=== PATIENT | male | born 1960 | race Caucasian/White ===

== ENCOUNTER 2019-12-21 17:05 | Inpatient (IN) | payer OTHER ==
[~2019-12-21] VITALS: Ht 177.8 cm; Wt 102.6 kg
[2019-12-21 17:19] VITALS: BP 171/91
[2019-12-21] MEDS ORDERED: PRINIVIL10 MG PO (17:42)
[2019-12-21] MEDS ORDERED: METFORMIN HCL500 M3 PO (17:42)
[2019-12-21 18:28] LABS: ABSOLUTE NEUTROPHILS 7.9 thou/uL (1.4-8.2); BASOPHILS 0.3 % (0.0-2.0); EOSINOPHILS 0.8 % (0.0-3.0); LYMPHOCYTES 12.4 % (24.0-44.0); MCH 34.2 pg (26.0-34.0); MCHC 34.7 g/dL (28.0-37.0); MCV 98.4 fL (80.0-100.0); MONOCYTES 7.7 % (1.0-8.0); PLATELET COUNT 131 thou/uL (150-400); POLYS 78.8 % (36.0-66.0); RBC 4.67 mil/uL (4.50-6.00)
[2019-12-21 18:33] LABS: CALCIUM 8.8 mg/dL (8.5-10.1); CREATININE 0.8 mg/dL (0.7-1.3); POTASSIUM 3.9 mmol/L (3.5-5.1)
[2019-12-21 18:39] LABS: ALBUMIN 3.4 g/dL (3.4-5.0); TOTAL BILIRUBIN 0.8 mg/dL (0.2-1.0); TOTAL PROTEIN 7.9 g/dL (6.4-8.2)
[2019-12-21 20:46] VITALS: BP 171/91
[2019-12-21 23:11] VITALS: BP 135/83
[2019-12-21 23:57] VITALS: BP 165/101
[2019-12-22 04:38] VITALS: BP 150/90
[2019-12-22 05:11] LABS: CALCIUM 8.4 mg/dL (8.5-10.1); CREATININE 0.9 mg/dL (0.7-1.3); POTASSIUM 4.1 mmol/L (3.5-5.1)
[2019-12-22 05:58] LABS: HEMATOCRIT 43.3 % (42.0-52.0); HEMOGLOBIN 14.9 gm/dL (14.0-18.0); MCH 34.1 pg (26.0-34.0); MCHC 34.4 g/dL (28.0-37.0); RBC 4.37 mil/uL (4.50-6.00); RDW 12.8 % (10.5-14.5); WBC 11.4 thou/uL (4.0-11.0)
--- NOTE | 2019-12-22 06:37 | NUR ---
PT ARRIVED VIA CART FROM ER. PT IS BAHAMIAN SPEAKING AND CAN UNDERSTAND THAI WELL. PT IS IN ISOLATION PRECAUTIONS DUE TO POSITIVE ANTIGEN TEST. FOLLOWING POC WITH IVPB. ADMISSION COMPLETED, CARE PLAN IN PLACE, INTERVENTIONS STARTED. PICTURE OF PT RIGHT FOOT TAKEN. PT REQUEST ORAL PAIN MEDICATION X1 AND HAD GOOD RESULTS. PT HAD A TEMP OF 102.6 AT 0430 VITALS. TYLENOL GIVEN AND TEMP RECHECKED AT 0600. 99.1 ORALLY. CONSULTS TO BE CALLED IN.
[2019-12-22 07:52] VITALS: BP 155/82
--- NOTE | 2019-12-22 10:00 | NUR ---
Nutrition: pt admitted with right foot cellulitis/DM foot ulcer. Consult received. Pt new admit. COVID +. Attempted phone call. Pt did not answer. 1999 carb controlled diet. Hx DM2, HTN. BG 258-259. A1C pending. RN reports pt eating > 100% of meals. No weight hx however pt reported weight as 238, weight obtained was 260#. Follow trends. Plan MRI foot to r/o osteomyelitis. Place pt as low nutrition risk for now.
--- NOTE | 2019-12-22 14:14 | NUR ---
INITIAL ASSESSMENT: SW reviewed chart and spoke with nursing and attending physicain. Pt was admitted from home due to cellulites/DM foot ulcer/osteomyelitis. Pt placed in Enhanced Isolation due to COVID-19. Pt with fever and is on IV abx. ID and Ortho consulted. SW placed call to pt's room. No answer. Per chart, pt is alert/orientated and lives at home with family. Pt is employed and has health insurance. GREGORY will continue to contact pt for additional information and to discuss discharge planning.
[2019-12-22 16:18] VITALS: BP 188/107
--- NOTE | 2019-12-22 20:00 | NUR ---
PATIENT RESTED IN ROOM THROUGH THE DAY. DOES NOT SEEM TO BE IN PAIN OR DISTRESS. PLEASANT WITH CARES. CELLULITIS NOT TO RIGHT LOWER EXTREMITY. HE DENIES PAIN. WILL CONT WITH PLAN OF CARE.
[2019-12-22 20:20] VITALS: BP 154/96
--- NOTE | 2019-12-22 23:56 | NUR ---
ASSUMED CARE AT 1900, ASSESSMENT COMPLETED. PT REPORTS PAIN IN RIGHT FOOT, HAD FEVER OF 101.4; GAVE NORCO AND TYLENOL. REMINDED TO CALL FOR PAIN MEDS, THAT NEXT AVAILABLE NORCO WAS AT 0100. PT ASKED TO HHAVE A WORK RELEASE FROM THE DOCTOR THAT HE COULD GIVE TO HIS TOMORROW. SWABBED FOOT WOUND PER DR. HARRELL. HANDOFF REPORT GIVEN AT 2330, PT IN STABLE CONDITION.
--- NOTE | 2019-12-23 01:32 | NUR ---
ATTEMPTED TO COMPLETE ID ORDER TO CALL MICRO LAB AND OBTAIN CYCLE THRESHOLD #4 COVID-19 PCR. FOLLOWED UP WITH LAB AND UNABLE TO OBTAIN DUE TO PATIENT HAVING POSITIVE ANTIGEN TEST THEREFORE NO PCR WAS OBTAINED.
[2019-12-23 05:09] VITALS: BP 141/86
[2019-12-23 07:08] LABS: GLYCOHEMOGLOBIN (HGB A1C) 8.4 % (4.8-5.6)
[2019-12-23 07:46] VITALS: BP 150/83
--- NOTE | 2019-12-23 09:14 | NUR ---
VANCO TROUGH FROM THE EVENING PRIOR IS HIGHER THAN THE NORMAL RANGE, VANCO MANAGED BY ID, RN CALLED ID, REACHED ANSWERING SERVICE, NOTIFIED OF HIGH TROUGH NUMBER AND SCHEDULED VANCO FOR 1100, ANSWERING SERVICE TO NOTIFY REAGARDING THIS PT.
--- NOTE | 2019-12-23 12:23 | HC ---
[facility] [place] [address] CONSULTATION Name: TJ MACIEL Room #: 359-P ADM IN M.R.#: [id number] Admission: 12/21/19 Attend Phys: Clive Martinez MD Discharge: Date of : 62 Report #: [id number] THIS REPORT FOR: cc: [facility] - Clinic physician unknown [facility] - Clinic physician unknown Lilo Perry MD ~ CC: [facility] unknown Clive Martinez DATE OF SERVICE: 12/22/2019 REASON FOR CONSULTATION: Cellulitis, right foot. Possible osteomyelitis. HISTORY OF PRESENT ILLNESS: The patient is a 59-year-old type 2 diabetic, who presented to the Emergency Department with right foot pain and falling approximately 4 days ago without a specific injury. He said the symptoms have become worse, although they have not really changed since he was admitted last night. He reports redness and swelling and pain. He denies any prior history of diabetic foot wounds. Of note, the exam was somewhat limited due to language barrier and step down specialist was not immediately available. REVIEW OF SYSTEMS: INTEGUMENTARY: Denies other skin issues secondary to diabetes. NEUROLOGIC: Denies numbness or tingling. PAST MEDICAL HISTORY: Significant for diabetes mellitus and hypertension. ALLERGIES: No known drug allergies. SOCIAL HISTORY: He denies smoking or drinking alcohol. He ambulates without any assistive devices. MEDICATIONS: Include lisinopril and metformin. SURGICAL HISTORY: Unknown. LABORATORY STUDIES: Done show COVID positive test. On 12/22/2019 white blood cell count 11.4, hemoglobin 14.9, hematocrit is 43.3, platelet count 132. ESR is elevated at 27, blood glucose levels are elevated in 255 range. PHYSICAL EXAMINATION: GENERAL: The patient is awake, alert and oriented. He interacts appropriately. He is a well-developed, well-nourished male in no acute distress. He has a normal affect. VITAL SIGNS: Most recent vital signs show temperature of 38.3, heart rate is 116, respiratory rate 21, blood pressure 188/107, pulse oximetry is 94% on room [address] [address] CONSULTATION Name: TJ MACIEL Room #: 359-P ADM IN M.R.#: [id number] Admission: 12/21/19 Attend Phys: Clive Martinez MD Discharge: Date of : 62 Report #: [id number]. EXTREMITIES: Examination of his right lower extremity, he has moderate amount of erythema and edema to the dorsum of his foot including his second, third and fourth toe. The third toe has some ecchymosis. He has diffuse tenderness in this area. He has 1+ dorsalis pedis pulse. Sensation is intact to light touch throughout. He has a skin breakdown on the dorsal aspect of his third toe. He wiggles his toes. Grossly normal strength and stability. Left lower extremity exam, the skin is clean, dry and intact. He has brisk capillary refill. He wiggles his toes. Grossly normal strength and stability. RADIOGRAPHS: AP, lateral and oblique of the right foot were reviewed and interpreted by myself as well as the report was reviewed, which shows a chronic appearing erosion at the base of the proximal second phalanx. MRI is pending. IMPRESSION AND PLAN: Right foot cellulitis, possible osteomyelitis. MRI is pending. Recommend continuing with IV antibiotics. We will check the MRI tomorrow and reevaluate. Thank you for allowing me to participate in the care of this patient. <ELECTRONICALLY SIGNED> By: Lilo Perry MD 12/23/19 1223 1726 11 Lilo Perry MD /nt
--- NOTE | 2019-12-23 14:43 | NUR ---
SW reviewed chart and spoke with nursing and attending physician. Pt in Enhanced Isolation due to COVID-19. Pt is febrile and on IVabx. Pt to have MRI of his foot today. Ortho and ID following. No weekend discharge planned. GREGORY is following to assist as needed with discharge planning.
[2019-12-23 16:28] VITALS: BP 162/81
[2019-12-23 21:08] VITALS: BP 162/96
[2019-12-24 02:59] VITALS: BP 133/86
--- NOTE | 2019-12-24 05:00 | NUR ---
ASSUMED CARE AT 1900, ASSESSMENT COMPLETED. PT REPORTS INTERMITTENT HEADACHE ALONG WITH MODERATE FOOT PAIN; HAVE GIVEN PAIN MEDS ONCE OVERNIGHT. BP ELEVATED AT HS, EDUCATED THIS COULD BE WHY PT HAS A HEADACHE. DENIES SOB, HAS SOME FINE CRACKLES IN LEFT LOWER BASE. RIGHT FOOT CONTINUES TO BE VERY WARM AND RED WITH 2+ EDEMA, BUT PT REPORTS HE IS ABLE TO MOVE HIS ANKLE AND FOOT WITHOUT MUCH PAIN A FEW DAYS AGO. NO OTHER CONCERNS, WILL CONTINUE TO MONITOR.
[2019-12-24 08:22] VITALS: BP 159/95
--- NOTE | 2019-12-24 12:48 | NUR ---
SPOKE WITH PT ABOUT CURRENT MRI RESULT THAT POPULATED YESTERDAY, PT WAS SEEN BY ORTHOPEDICS , WELL . IT WAS DISCUSSED WITH ORTHOPEDICS THAT PT'S FOOT IS TO BE MONITORED TO SEE IF AMPUTATION WILL BE NEEDED. NO COMPLAINTS FROM THE PT AT THIS TIME. PAIN MEDICATION WAS PROVIDED PER REQUEST AND ABX STILL INFUSING AT THIS TIME
[2019-12-24 15:30] VITALS: BP 135/86
[2019-12-24 21:17] VITALS: BP 180/105
[2019-12-25 04:12] VITALS: BP 141/85
[2019-12-25 06:02] LABS: HEMATOCRIT 39.6 % (42.0-52.0); HEMOGLOBIN 13.6 gm/dL (14.0-18.0); MCH 33.4 pg (26.0-34.0); MCHC 34.2 g/dL (28.0-37.0); MCV 97.6 fL (80.0-100.0); PLATELET COUNT 165 thou/uL (150-400); RBC 4.06 mil/uL (4.50-6.00); RDW 12.6 % (10.5-14.5); WBC 6.6 thou/uL (4.0-11.0)
[2019-12-25 06:15] LABS: CALCIUM 8.6 mg/dL (8.5-10.1); CREATININE 0.7 mg/dL (0.7-1.3); MAGNESIUM 1.7 mg/dL (1.8-2.4); POTASSIUM 3.7 mmol/L (3.5-5.1)
[2019-12-25 07:50] LABS: ABSOLUTE NEUTROPHILS 4.8 thou/uL (1.4-8.2)
[2019-12-25 07:54] VITALS: BP 146/83
[2019-12-25 15:23] VITALS: BP 165/92
--- NOTE | 2019-12-25 15:28 | NUR ---
PT WAS SEEN TODAY BY ORTHOPEDICS, IT WAS STATED LIKELY AMPUTATION OF THE R FOOT 3RD DIGIT, PUS WAS DRAINED. DRESSING CHANGED TWICE BY RN AND MD. NO XEROFORM NEEDED WITH DRESSING CHANGE AT THIS TIME. BORDER LINE DRAWN BY RN OF THE CELLULITIS, TIMED/DATED. PT HAD AN EPISODE OF FEVER 100.2F, MONITORING AND TYLENOL/HYDROCODONE WILL BE PROVIDED. PT HAS HEALTHY APPETITE AND GREAT OUTLOOK. WILL CONTINUE TO MONITOR CLOSELY AND PROVIDE ABX TX SCHEDULED.
--- NOTE | 2019-12-25 15:48 | HC ---
[facility] [place] [address] CONSULTATION Name: TJ MACIEL Room #: 359-P ADM IN M.R.#: [id number] Admission: 12/21/19 Attend Phys: Clive Martinez MD Discharge: Date of : 62 Report #: [id number] THIS REPORT FOR: cc: [facility] - Clinic physician unknown [facility] - Clinic physician unknown Wong Acevedo MD ~ CC: [facility] unknown Clive Martinez DATE OF SERVICE: 12/24/2019 WOUND CARE CONSULTATION REASON FOR CONSULTATION: Cellulitis of right second and third toe with cellulitis of foot in setting of diabetic foot ulcer. HISTORY OF PRESENT ILLNESS: The patient is a 59-year-old gentleman with a history of diabetes mellitus type 2 and hypertension, admitted for extreme cellulitis of his right foot associated with diabetic foot ulcer between the second and third toes. Plain radiograph of the foot has shown no bony involvement. An MRI was negative for osteomyelitis. Lower extremity Doppler study has shown no deep vein thrombosis. Lower extremity arterial duplex ultrasound shows no arterial insufficiency. Wound care is consulted due to diabetic foot ulcer. Foot has become quite red with some redness extending from the foot to the leg. PAST MEDICAL HISTORY: Diabetes mellitus type 2, previous history of osteomyelitis. ALLERGIES: No known drug allergies. MEDICATIONS: Metformin. The patient is currently on Zosyn, lisinopril, Humalog insulin, vancomycin, hydrocodone. PHYSICAL EXAMINATION: GENERAL: Shows a well-appearing middle-aged male who is alert and pleasant. HEENT: Mucous membranes are moist. NECK: Supple. LUNGS: Respirations unlabored. ABDOMEN: Soft. EXTREMITIES: Examination of the lower extremities shows bright red cellulitis with edema of the dorsum of his right foot associated with an open ulceration between the second and third toes at the base of the toes in the interspace with some drainage. Redness extending from the toe to the dorsum of the foot to the ankle. Left foot is normal. [facility] [address] [place] [address] CONSULTATION Name: TJ MACIEL Room #: 359-P ADM IN [facility].#: [id number] Admission: 12/21/19 Attend Phys: Clive Martinez MD Discharge: Date of : 62 Report #: [id number] LABORATORY DATA: White blood count 10.0. MICROBIOLOGY: Culture of the right diabetic foot ulcer shows beta strep group B preliminarily. IMPRESSION: Diabetic foot ulcer of right foot with cellulitis of second and third toes and foot. PLAN: Elevation of the extremity. IV antibiotics, vancomycin and Zosyn antibiotics, tailored to culture results. He will use Xeroform and dry gauze between the toe interspace. Observe for resolution of cellulitis with antibiotics. There does not appear to be bony involvement. Wound care team will follow. <ELECTRONICALLY SIGNED> By: Wong Acevedo MD 12/25/19 1548 1627 [id number] Wong Acevedo MD /nt
[2019-12-25 20:05] VITALS: BP 158/88
[2019-12-26 04:03] VITALS: BP 153/89
[2019-12-26 06:17] LABS: ABSOLUTE NEUTROPHILS 4.6 thou/uL (1.4-8.2); BASOPHILS 0.4 % (0.0-2.0); EOSINOPHILS 1.2 % (0.0-3.0); HEMATOCRIT 39.7 % (42.0-52.0); HEMOGLOBIN 13.7 gm/dL (14.0-18.0); LYMPHOCYTES 16.3 % (24.0-44.0); MCH 33.6 pg (26.0-34.0); MCHC 34.6 g/dL (28.0-37.0); MCV 97.3 fL (80.0-100.0); MONOCYTES 9.8 % (1.0-8.0); PLATELET COUNT 162 thou/uL (150-400); POLYS 72.3 % (36.0-66.0); RBC 4.08 mil/uL (4.50-6.00); RDW 12.2 % (10.5-14.5); WBC 6.4 thou/uL (4.0-11.0)
--- NOTE | 2019-12-26 06:18 | NUR ---
FOLLOWING POC WITH IVPB ANTIBIOTICS. DURING DAY YESTERDAY PT HAD A FEVER, BUT THERE WERE NONE OVERNIGHT. PT REQUESTED PO PAIN MEDICATIONS AND HAD GOOD RESULTS FOR PAIN MANAGEMENT. VSS.
[2019-12-26 07:29] VITALS: BP 156/84
--- NOTE | 2019-12-26 10:54 | NUR ---
PT RECEIVED A SHOWER TODAY INDEPENDANTLY, RN CHANGED ALL LINENS IN THE ROOM, ALSO PROVIDED WOUND CARE POST SHOWER PER ORDER. NO COMPLAINTS FROM THE PT AT THIS TIME. TEMPERATURE ELEVATED AT 100.4F THIS MORNING WITH INCREASED HR. NORCO AND ACETOMINOPHEN PROVIDED. ORTHO TO POSSIBLY SEE THE PT TODAY, WILL UPDATE PROGRESSES
[2019-12-26 20:23] VITALS: BP 169/100
[2019-12-27 05:03] VITALS: BP 130/76
--- NOTE | 2019-12-27 06:40 | NUR ---
PT HAS HAD FEVERS OFF AND ON YESTERDAY. 2100 TEMP 102.6, TYLENOL GIVEN WITH GOOD RESULTS TEMP ON RECHECK WAS 98.6. PT UP AD MELISSA. MONITORING WOUND AND FOLLOWING POC WITH IVPB.
[2019-12-27 07:44] VITALS: BP 151/87
--- NOTE | 2019-12-27 11:05 | NUR ---
SW reviewed chart and spoke with nursing and attending physician. Pt in Enhanced isolation due to COVID-19. Pt is febrile and on IV abx. Pt does not require O2. Ortho following due to right 3rd toe abscess. May need amputation. SW is following to assist as needed with discharge planning.
--- NOTE | 2019-12-27 14:40 | NUR ---
ASSUMED PATIENT CARE THIS AM AT APPROXIMATELY 0700. PATIENT AWAKE ALERT, NO DISTRESS NOTED. PATIENT TOLERATING MEDICATIONS ORDERED. ASSESSMENTS CHARTED. EDUCATED PATIENT ON NEED FOR IV ABO FOR INFECTION TO RIGHT FOOT. DRY GAUZE DRESSING CHANGE COMPLETED TO RIGHT FOOT THIS SHIFT AND PATIENT TOLERATED WELL. O2 SAT STABLE ON ROOM AIR, NO COMPLAINTS OF SOB.
[2019-12-27 15:15] VITALS: BP 158/78
[2019-12-27 19:28] VITALS: BP 152/89
[2019-12-28 04:41] VITALS: BP 130/88
--- NOTE | 2019-12-28 06:00 | NUR ---
PT TOOK A SHOWER THEN COMPLETED WOUND CARE PER POC. IVPB ANTIBIOTICS GIVEN. ORAL PAIN MEDICATION GIVEN X1. PT UP AD MELISSA. NO FEVERS OVERNIGHT.
[2019-12-28 08:10] VITALS: BP 146/99
[2019-12-28 11:33] VITALS: BP 140/89
--- NOTE | 2019-12-28 14:05 | NUR ---
SW reviewed chart and spoke with nursing and attending physician. Pt remains in Enhanced Isolation due to COVID-19. Pt is afebrile and not requiring O2. Pt is on IV abx. Ortho and wound care following for possible debridement. SW placed call to pt's room. No answer. SW is following to assist as needed with discharge planning.
[2019-12-28 16:59] VITALS: BP 152/81
[2019-12-28 19:56] VITALS: BP 158/89
[2019-12-29 05:42] VITALS: BP 144/80
[2019-12-29 08:04] VITALS: BP 165/100
--- NOTE | 2019-12-29 08:22 | NUR ---
ASSUMED CARE OF PATIENT. ALERT XS 4 NO PAIN BLOOD SUGAR CHECKED. AM MEDS AND INSULIN ORDERED TO BE GIVEN. PT PLEASANT AND COOPERATIVE WITH CARE.
--- NOTE | 2019-12-29 09:50 | NUR ---
Nutrition: Seen for weekly follow up. Pt continues as COVID+ in Enhanced Isolation. Able to reach pt by phone today. He reports a really great, stable appetite. Ate 100% of all meals recorded from 12/26, no other meals recorded this stay. He has diabetic foot ulcer/R foot cellulitis. Ortho and wound care following for possible debridement? R middle toe noted to have some necrotic skin per EMR. On a 2000 kcal diabetic diet. Majority of BGs are ~150 mg/dl or less, yesterday BGs ranged 149-206 mg/dl. He is on metformin BID and SSI. Question accuracy of 260# initial admit wt as most recently this week weights are stable at 226-230#. Pt agreeable to RD education over phone re: protein needs to support wounds and healthy foods in general to choose. See RD education note for more details. Keep as low nutrition risk.
--- NOTE | 2019-12-29 10:11 | NUR ---
DR MCDANIELS SPEAKS [place] AND EXPLAINED PICC PLACEMENT TO HIM PATIENT WILL GO HOME WITH IV ABT THERAPY.
--- NOTE | 2019-12-29 13:42 | NUR ---
GREGORY reviewed chart and spoke with nursing. Pt is in Enhanced Isolation due to COVID-19. Pt is afebrile and not requiring O2. Pt remains on IV abx. Pt to have PICC line placed today with anticipation of home IV abx. SW spoke with pt via phone to discuss home IV abx. Pt verbalized understanding. Hospitalist who speaks Turkmen met with pt to discuss PICC line placement and home IV abx. Pt aware of need for home IV abx. SW explained process for home infusion/HH. Pt verbalized understanding. No preference voiced of providers. SW faxed referral to [facility] to check insurance coverage. SW also faxed referral to [facility] . Notified liaisons of new referral. GREGORY is following to assist as needed with discharge planning.
[2019-12-29 17:04] VITALS: BP 149/86
[2019-12-29 19:59] VITALS: BP 164/84
--- NOTE | 2019-12-29 20:07 | NUR ---
RISK, BENEFITS, AND ALTERNATIVE TREATMENT DISCUSSED RELATED TO PICC PROCEDURE. TEACHING GIVEN RELATED TO POSSIBLE COMPLICATIONS SUCH BLEEDING, INFECTION, CLOT, OR VESSEL PERFORATION. INSTRUCTION GIVEN RELATED TO CLABSI PREVENTION. TEACHING GIVEN IN SIMPLE TERMS TO THE PATIENT. PATIENT VOICES UNDERSTANDING. VOICES THAT DR. GALEANO EXPLAINED EVERYTHING IN DETAIL EARLIER THIS AM. CONSENT OBTAINED. SINGLE LUMEN PICC PLACED TO RUE BASILIC VEIN. ONE STICK AND NO COMPLICATIONS. PATIENT TOLERATED WELL. LENGTH =45CM. EXTERNAL =0CM. CHEST XRAY CONFIRMED TIP OF PICC IN DISTAL SVC. PATIENT'S RN AND CHARGE NURSE NOTIFIED OKAY TO USE PICC.
--- NOTE | 2019-12-30 01:04 | NUR ---
ASSUMED CARE OF PT AT 1900HRS. PT IS AOX4 AND LETS NEEDS BE KNOWN. PT IS UP AD MELISSA. ABX TREATMENT CONTINUED. ASSESSMENT CHARTED. PT DENIED SIGNIFICANT PAIN, NAUSEA OR SOA. ENHANCED ISOLATION MAINTAINED. HOME HEALTH TO ASSESS PT BEFORE DC. POSSIBLE DC IN THE AM WITH HH AND IV ABX. PT WAS TAURUS TO GET COMFORTABLE AND SLEEP PART OF THE SHIFT. VSS ANS NO S/S OF ACUTE DISTRESS. WILL CONTINUE TO MONITOR.
[2019-12-30 04:22] VITALS: BP 149/76
[2019-12-30 08:00] VITALS: BP 139/87
[2019-12-30] MEDS ORDERED: INVANZ1 GM IV (10:37)
--- NOTE | 2019-12-30 10:43 | NUR ---
ASSUMED PATIENT CARE THIS AM AT APPROXIMATELY 0700. PATIENT AWAKE ALERT ORIENTED IN NO ACUTE DISTRESS. TOLERATING MEDS/ DIET WELL. O2 SAT STABLE ON ROOM AIR. DRESSING CHANGE COMPLETED TO RIGHT FOOT WOUND, TOLERATED WELL. DENIES ANY PAIN TO FOOT AT THIS TIME. SEEN BY DR. BRITO AND STATES OK TO DC AFTER SEEN BY HH NURSE AND HH SET UP. SPOKE WITH DR. HARRELL, STATES TO GIVE DOSE OF ERTAPENEM PRIOR TO D/C AND MED WILL BE Q24H PATIENT WILL BE INSTRUCTED TO TAKE MEDICATION TOMORROW.
[2019-12-30 10:46] VITALS: BP 139/87
[2019-12-30 12:16] VITALS: BP 139/87
--- NOTE | 2019-12-30 13:42 | NUR ---
CARE TEAM INDICATED THAT PT IS MEDICALLY STABLE TO DISCHARGE HOME THIS DAY. LAINE WITH [facility] DELIVERED SUPPLIES TO UNIT AND DRUG WILL BE DELIVERED TO PT'S HOME THIS EVENING. SHE COMPLETED FACE TIME BEDSIDE TEACH AND SHE INDICATED THAT PT DID WELL. ORDERS S[facility] TO [facility] AND [facility] . PT'S SPOUSE TO PROVIDE TRANSPORT HOME AFTER PT FINISHES HIS LOADING DOSE OF ABX SHORTLY AFTER 1300. NO OTHER CM INTERVENTION INDICATED. CASE CLOSED.
--- NOTE | 2019-12-30 17:15 | NUR ---
PATIENT DISCHARGED HOME TODAY, EDUCATION GIVEN REGARDING HOME IV ABO INFUSION DAILY, HH NURSE CAME TO UNIT TO INSTRUCT PATIENT ON PROPER USE OF PICC LINE AND INFUSION OF IV ANTIBIOTICS, PATIENT WAS ABLE TO RETURN DEMONSTRATE PROCESS AND VERBALIZED UNDERSTANDING OF PROCCESS. PATIENT FOLLOW UP APPOINTMENT MADE WITH DR. STRONG OFFICE FOR 1 WEEK POST-DISCHARGE. PATIENT REPORTS UNDERSTANDING OF NEED FOR FOLLOW UP. DRESSING CHANGE ORDERS REVIEWED WITH PATIENT., INSTRUCTED PATIENT TO KEEP WOUND CLEAN AND DRY. PATIENT LEFT UNIT WITH PICC LINE IN PLACE. DRESSING C/D/I. NO S/S OF INFECTION NOTED TO SITE. EDUCATED PATIENT TO KEEP PICC DRESSING INTACT AND C/D AND HH NURSE WITH CHANGE DRESSINGS WEEKLY. WHEELED OFF UNIT VIA WHEELCHAIR. TAKEN HOME BY
== END 2019-12-30 13:53 | disposition home health service (06) | DRG 871 ==
LOC: ER 17:05 → EROBS 20:33 → 3W 20:33
PROVIDERS: Nurse Practitioner Family; Orthopaedic Surgery Sports Medicine; ADMIT Internal Medicine; ATTEND Internal Medicine
PROC: B548ZZA Ultrasonography of Superior Vena Cava, Guidance (ICD-10-PCS; principal; 2019-12-29)
PROC: 02HV33Z Insertion of Infusion Device into Superior Vena Cava, Percutaneous Approach (ICD-10-PCS; principal; 2019-12-29)
DX: A41.9 Sepsis, unspecified organism (principal); U07.1 COVID-19; L03.115 Cellulitis of right lower limb; E11.52 Type 2 diabetes mellitus with diabetic peripheral angiopathy with gangrene; I96 Gangrene, not elsewhere classified; L02.611 Cutaneous abscess of right foot; L97.519 Non-pressure chronic ulcer of other part of right foot with unspecified severity; B95.5 Unspecified streptococcus as the cause of diseases classified elsewhere; B96.89 Other specified bacterial agents as the cause of diseases classified elsewhere; B95.61 Methicillin susceptible Staphylococcus aureus infection as the cause of diseases classified elsewhere; I10 Essential (primary) hypertension; E11.42 Type 2 diabetes mellitus with diabetic polyneuropathy; E11.621 Type 2 diabetes mellitus with foot ulcer; Z79.84 Long term (current) use of oral hypoglycemic drugs; Z79.899 Other long term (current) drug therapy
CPT/HCPCS: 10080; 27000

== ENCOUNTER → 2020-02-20 | Outpatient (CLI) | payer OTHER ==
[~2020-02-20] MED LIST: INVANZ1 GM IV; METFORMIN HCL500 M3 PO; PRINIVIL10 MG PO
== END ==
LOC: LAB 02-17 08:30
PROVIDERS: ATTEND Emergency Medicine
DX: Z20.828 Contact with and (suspected) exposure to other viral communicable diseases (principal)

== ENCOUNTER → 2020-02-27 | Outpatient (CLI) | payer OTHER | LOC: HYPER 08:30 | PROVIDERS: ATTEND Emergency Medicine Emergency Medical Services | DX: E11.621 Type 2 diabetes mellitus with foot ulcer (principal); L97.512 Non-pressure chronic ulcer of other part of right foot with fat layer exposed; L03.031 Cellulitis of right toe; E11.52 Type 2 diabetes mellitus with diabetic peripheral angiopathy with gangrene; I96 Gangrene, not elsewhere classified; E11.42 Type 2 diabetes mellitus with diabetic polyneuropathy; E11.69 Type 2 diabetes mellitus with other specified complication; M86.8X8 Other osteomyelitis, other site; Z79.84 Long term (current) use of oral hypoglycemic drugs ==